=== PATIENT | female | born 1985 | race African-American/Black ===

== ENCOUNTER 2023-09-20 10:17 | Observation (INO) | payer BC ==
[2023-09-20] MEDS ORDERED: Metoclopramide HCl 10 MG (2 mL) VIAL ONE (10:35)
[2023-09-20] MEDS ORDERED: diphenhydrAMINE 50 MG/ML VIAL ONE (10:35)
[2023-09-20 11:06] LABS: #Basophils 0.04 10x3/uL (0.0-0.2); %Basophils 0.8 % (0.0-1.0); %Lymphocytes 38.8 % (21.0-51.0); %Monocytes 10.1 % (0.0-10.0); %Neutrophils 48.9 % (42.0-75.0); Hematocrit 36.9 % (36.0-47.0); Hemoglobin 12.7 g/dL (12.0-16.0); Mean Corpuscular HGB CONC 34.4 g/dL (32.0-36.0); Mean Corpuscular Volume 87.2 fL (78.0-98.0); Mean Platelet Volume 9.1 fL (7.4-10.4); Platelet Count 365 10x3/uL (130-400); RBC Distribution Width 12.7 % (11.5-14.5); Red Blood Cell (RBC) Count 4.23 mill/uL (4.20-5.40)
[2023-09-20] MEDS ORDERED: Magnevist 469MG/ML 20 ML VIAL ONE (11:33)
[2023-09-20 11:39] LABS: Albumin 3.8 g/dL (3.5-5.0); Calcium 10.1 mg/dL (7.8-10.44); Chloride 106 mmol/L (98-107); Potassium 3.6 mmol/L (3.5-5.1); Sodium 140 mmol/L (136-145)
[2023-09-20 11:40] LABS: Glucose 89 mg/dL (70-105); Protein, Total 7.8 g/dL (6.0-8.3)
[2023-09-20 11:41] LABS: Anion Gap 14 mmol/L (10-20); BHCG - Serum Negative (NEGATIVE); Carbon Dioxide 24 mmol/L (22-29); Pregs Control Background? CLEAR/WHITE (CLR/WHITE); Pregs Control Bar Appear? YES (CONTROL BAR)
[2023-09-20 11:43] LABS: Alkaline Phosphatase 68 U/L (40-110); Bilirubin, Total 0.4 mg/dL (0.2-1.2)
[2023-09-20 11:44] LABS: BUN (Urea Nitrogen) 14 mg/dL (7.0-18.7); Calc. Creatinine Clearance 0 mL/min (70-130); Estimated GFR 75
[2023-09-20 11:45] LABS: ALT (SGPT) 14 U/L (8-55)
[2023-09-20 11:46] LABS: AST (SGOT) 17 U/L (5-34)
[2023-09-20] MEDS ORDERED: Ondansetron PF 4 MG/2 ML Vial IVP PRN (12:07)
[2023-09-20] MEDS ORDERED: Acetaminophen 325 MG TAB PO PRN (12:07)
[2023-09-20 17:10] VITALS: BMI 28.4
[2023-09-21 04:34] LABS: #Basophils 0.05 10x3/uL (0.0-0.2); %Basophils 0.9 % (0.0-1.0); %Eosinophils 2.3 % (0.0-10.0); %Lymphocytes 40.5 % (21.0-51.0); %Monocytes 10.2 % (0.0-10.0); %Neutrophils 45.7 % (42.0-75.0); Hematocrit 34.5 % (36.0-47.0); Hemoglobin 11.4 g/dL (12.0-16.0); Mean Corpuscular Hemoglobin 30.1 pg (27.0-31.0); Mean Platelet Volume 9.1 fL (7.4-10.4); Platelet Count 310 10x3/uL (130-400); RBC Distribution Width 12.8 % (11.5-14.5); Red Blood Cell (RBC) Count 3.79 mill/uL (4.20-5.40)
[2023-09-21 04:58] LABS: Anion Gap 13 mmol/L (10-20); BUN (Urea Nitrogen) 15 mg/dL (7.0-18.7); Calc. Creatinine Clearance 95 mL/min (70-130); Calcium 9.2 mg/dL (7.8-10.44); Carbon Dioxide 22 mmol/L (22-29); Chloride 108 mmol/L (98-107); Estimated GFR 73; Glucose 91 mg/dL (70-105); Potassium 3.8 mmol/L (3.5-5.1); Sodium 139 mmol/L (136-145)
[2023-09-21] MEDS ORDERED: Sodium Bicarbonate 2.5 MEQ/5 ML SDV ONE (07:56)
[2023-09-21 10:08] LABS: CSF Source CSF; Clarity Clear (Clear); Tube # 3
[2023-09-21 10:12] LABS: Color Of CSF Supernatant COLORLESS (Colorless); Tube # 1; Unspun CSF Color COLORLESS (Colorless)
[2023-09-21 10:18] LABS: CSF, Glucose 51 mg/dl (40-70); CSF, Protein 34.2 mg/dL (15-40)
[2023-09-21] MEDS: Enoxaparin 40 MG (0.4 mL) SYRINGE SC SCH (11:02)
[2023-09-21 12:15] VITALS: BP 137/89; TEMP 97.8
== END 2023-09-21 16:05 | disposition home or self-care (01) ==
LOC: ERS 10:17 → ERHOLD 12:10 → 2SE 12:10
PROVIDERS: ADMIT Internal Medicine; ATTEND Internal Medicine
PROC: 009U3ZZ Drainage of Spinal Canal, Percutaneous Approach (ICD-10-PCS; principal; 2023-09-21)
DX: G93.2 Benign intracranial hypertension (principal)
CPT/HCPCS: 36415; 62270; 70450; 70553; 80048; 80053; 82945; 84157; 84703; 85025; 87070; 87205; 89051; 96365; 96375; A9579; G0378; J1200; J2765